=== PATIENT | female | born 1970 | race Caucasian/White ===

== ENCOUNTER 2025-01-18 00:32 | Emergency (ER) | payer BC, OTHER ==
[~2025-01-18] VITALS: Ht 170.2 cm; Wt 87.0 kg
[2025-01-18 00:42] VITALS: O2SAT 98
[2025-01-18] MEDS: IBUPROFEN 600MG TABLET PO ONE (02:16)
[2025-01-18 02:57] VITALS: BP 129/89; PULSE 78; RESP 18; TEMP 37; O2SAT 98
== END 2025-01-18 02:59 | disposition home or self-care (01) ==
LOC: ER 00:32
DX: S00.12XA Contusion of left eyelid and periocular area, initial encounter (principal); Z88.0 Allergy status to penicillin; X58.XXXA Exposure to other specified factors, initial encounter; Y93.89 Activity, other specified; Y92.89 Other specified places as the place of occurrence of the external cause; Y99.8 Other external cause status
CPT/HCPCS: 70486; 99284